=== PATIENT | male | born 1980 | race Caucasian/White ===

== ENCOUNTER 2016-10-18 16:58 | Emergency (ER) | payer OTHER ==
[2016-10-18] MEDS ORDERED: NO MEDICATIONS (17:08)
== END 2016-10-18 19:12 | disposition home or self-care (01) ==
LOC: SED 16:58
DX: F15.10 Other stimulant abuse, uncomplicated (principal); F17.210 Nicotine dependence, cigarettes, uncomplicated
CPT/HCPCS: 99284